=== PATIENT | female | born 1950 | race Caucasian/White ===

== ENCOUNTER 2017-03-09 10:41 | Inpatient (IN) | payer OTHER, MEDICARE ==
[~2017-03-09] VITALS: Ht 170.2 cm; Wt 85.8 kg
[~2017-03-09 10:41] MED LIST: AMLO10TA2 PO; ESTETAB3 PO; FISHCAP4 PO; HYDR25TA5 PO; SIMV20TA PO; VITA200C3 PO
--- NOTE | 2017-03-09 11:44 | PD.HP.UP ---
H&P Update Note The Pre-Admit History and Physical Examination regarding the above named patient was reviewed (including, but not limited to, vital signs, heart, lungs, co-morbid conditions), and upon re-examination it is noted that: the patient's condition has not significantly changed since the last examination. Satya Lopez MD Mar 09, 2017 11:44
[2017-03-09] MEDS ORDERED: ALVIMOPAN 12 MG CAPSULE ONE (12:27)
[2017-03-09] MEDS ORDERED: ceFAZolin INJ 1,000 MG VIAL ONE (12:28)
[2017-03-09] MEDS ORDERED: SODIUM CHLORIDE 0.9% INJ 100 ML ONE (12:29)
[2017-03-09] MEDS ORDERED: metroNIDAZOLE 500 MG INJ 100 ML IV ONE (12:29)
[2017-03-09] MEDS ORDERED: METOPROLOL TARTRATE 25 MG TAB PO PRN (12:30)
[2017-03-09] MEDS ORDERED: SODIUM CHLORID 0.9% 500 ML IV PRN (12:30)
[2017-03-09] MEDS ORDERED: LACTATED RINGER'S 1000 ML IV PRN (12:30)
[2017-03-09] MEDS ORDERED: CHLORHEXIDINE GLUCONATE 2 % 1 PACK (2 CLOTHS) TOPICAL PRN (12:30)
[2017-03-09] MEDS ORDERED: POVIDONE IODINE 5% (ANTISEPSIS KIT) 4 APPLICATIONS EACH NARE PRN (12:30)
[2017-03-09] MEDS: ALVIMOPAN 12 MG CAPSULE - On Call PO SCH (12:35)
--- NOTE | 2017-03-09 12:37 | RADRPT ---
EXAM DATE/TIME: 03/09/2017 12:13 [facility] COMPARISON: No previous studies available for comparison. INDICATIONS : Pre op colon surgery. Evaluate for pneumothorax, pneumonia, or communicable diseases. MEDICAL HISTORY : None. SURGICAL HISTORY : None. ENCOUNTER: Initial ACUITY: 1 day PAIN SCORE: 0/10 LOCATION: Bilateral chest FINDINGS: Minimal left basilar streakiness is noted consistent with possible atelectasis. Right lung is clear. The heart is normal. No pulmonary edema is noted. CONCLUSION: Minimal left basilar streakiness consistent with possible atelectasis. Jose Antonio Herrmann MD on March 09, 2017 at 12:34 Board Certified Radiologist. This report was verified electronically.
[2017-03-09] MEDS ORDERED: ceFAZolin 1,000 MG/NS 100 ML IV SCH ×2 (12:45)
[2017-03-09] MEDS ORDERED: METRONIDAZOLE 500 MG/100 ML ISONTONIC SOLN IV SCH (12:45)
[2017-03-09] MEDS ORDERED: DEXT 5%-NACL 0.9% 1000 ML INJ 1,000 ML IV SCH (13:00)
[2017-03-09] MEDS ORDERED: SUGAMMADEX SODIUM 200 MG/2 ML VIAL IV PUSH ONE ×2 (13:01)
[2017-03-09] MEDS ORDERED: ACETAMINOPHEN 1000 MG/100 ML 100 ML IV ONE (13:01)
[2017-03-09] MEDS ORDERED: BUPIVACAINE HCL PF 0.5% 30 ML VIAL ONE ×2 (13:51→13:52)
[2017-03-09] MEDS ORDERED: Post-op Orders (for Pharmacy) XX ONE (14:48)
[2017-03-09] MEDS ORDERED: *morphine SULFATE 8 MG/ML PERIprocedure ONLY ONE ×3 (14:54→15:21)
[2017-03-09] MEDS ORDERED: ACETAMINOPHEN 325 MG TAB PO PRN (15:00)
[2017-03-09] MEDS ORDERED: MORPHINE SULFATE 30 MG/30 ML PCA IV SCH (15:00)
[2017-03-09] MEDS ORDERED: ONDANSETRON HCL 4 MG/2 ML VIAL IV PUSH PRN (15:00)
[2017-03-09] MEDS ORDERED: BUPIVACAINE HCL PF 0.5% 30 ML VIAL NB SCH (15:00)
[2017-03-09] MEDS ORDERED: BENZOCAINE 6 MG/MENTHOL 10 MG LOZENGE BUCCAL PRN (15:00)
[2017-03-09] MEDS ORDERED: POTASSIUM CHLOR 20 MEQ PREMIX 100 ML IV PRN (15:00)
[2017-03-09] MEDS ORDERED: KETOROLAC TROMETHAMINE 30 MG/ML (IVP) VIAL IVP PRN (15:00)
[2017-03-09] MEDS ORDERED: NALOXONE HCL 0.4 MG/ML AMP IV PUSH PRN (15:00)
[2017-03-09] MEDS ORDERED: POTASSIUM CHLOR 40 MEQ PREMIX 100 ML IV PRN (15:00)
[2017-03-09] MEDS ORDERED: ACETAMINOPHEN/HYDROcodone 325 MG/5 MG TAB PO PRN (15:00)
[2017-03-09] MEDS ORDERED: ENALAPRILAT 1.25 MG/ML VIAL IV PUSH PRN (15:00)
[2017-03-09] MEDS ORDERED: ENALAPRILAT 2.5 MG/2 ML VIAL IV PUSH PRN (15:00)
[2017-03-09] MEDS ORDERED: MORPHINE SULFATE 30 MG/30 ML PCA ONE (15:25)
[2017-03-09] MEDS ORDERED: DO NOT ADM ANY ANTICOAGULANT DRUGS PRN (15:30)
[2017-03-09] MEDS: D5-NS + KCL 20 MEQ INJ 1,000 ML IV SCH ×2 (15:30→21:04)
[2017-03-09] MEDS ORDERED: *RESP: ALBUTEROL 2.5 MG/3 ML NEB (PRN) PERIprocedural Use ONLY NEB ONE (16:41)
[2017-03-09] MEDS: metroNIDAZOLE 500 MG INJ 100 ML IV SCH (21:03)
[2017-03-09] MEDS: METOCLOPRAMIDE HCL 10 MG/2 ML VIAL IVS SCH (21:04)
[2017-03-09] MEDS: PCA - TOTAL MG MORPHINE DELIVERED PER SHIFT SCH (21:14)
[2017-03-09 22:49] VITALS: BP 110/66; PULSE 88; RESP 18; TEMP 98.2; O2SAT 93
[2017-03-09 23:00] VITALS: PULSE 88
[2017-03-10] VITALS (15 sets, daily range): BP systolic 81–129; BP diastolic 59–76; PULSE 84–106; RESP 16–24; TEMP 98–99.3; O2SAT 92–93
[2017-03-10] MEDS: D5-NS + KCL 20 MEQ INJ 1,000 ML IV SCH ×3 (03:45→23:44)
[2017-03-10 04:15] LABS: AUTOMATED NEUTROPHIL # 16.7 TH/MM3 (1.8-7.7); BASOPHIL % 0.1 % (0.0-2.0); HEMATOCRIT 34.5 % (35.0-46.0); HEMO FLAGS DIFF FINAL; LYMPH % 4.4 % (9.0-44.0); LYMPHOCYTE # 0.8 TH/MM3 (1.0-4.8); MEAN CELL VOLUME 91.1 FL (80.0-100.0); MEAN CORPUSCULAR HEMOGLOBIN 30.1 PG (27.0-34.0); NEUT % 91.5 % (16.0-70.0); PLATELET COUNT 282 TH/MM3 (150-450); RED BLOOD COUNT 3.79 MIL/MM3 (4.00-5.30); RED CELL DISTRIBUTION WIDTH 13.9 % (11.6-17.2); WHITE BLOOD COUNT 18.3 TH/MM3 (4.0-11.0)
[2017-03-10] MEDS: metroNIDAZOLE 500 MG INJ 100 ML IV SCH ×2 (04:37→14:18)
[2017-03-10 04:43] LABS: BICARBONATE 22.5 MEQ/L (21.0-32.0); POTASSIUM 4.1 MEQ/L (3.5-5.1)
[2017-03-10] MEDS: PCA - TOTAL MG MORPHINE DELIVERED PER SHIFT SCH ×3 (06:00→20:40)
[2017-03-10] MEDS: PANTOPRAZOLE SOD 40 MG DELAYED RELEASE TAB PO SCH (09:00)
[2017-03-10] MEDS: PRAVASTATIN SOD 40 MG TAB PO SCH (09:46)
[2017-03-10] MEDS: ALVIMOPAN 12 MG CAPSULE - Post-op dosing PO SCH ×2 (09:46→20:39)
[2017-03-10] MEDS: METOCLOPRAMIDE HCL 10 MG/2 ML VIAL IVS SCH ×2 (09:47→20:40)
[2017-03-10] MEDS: PANTOPRAZOLE SODIUM 40 MG VIAL IVP SCH (09:47)
[2017-03-10] MEDS: RESP: ALBUTEROL 2.5 MG/IPRATROPIUM 0.5 MG NEB (SCH) NEB ×3 (10:04→19:59)
[2017-03-10] MEDS: HEPARIN SODIUM - SQ 10,000 UNITS/ML VIAL SQ SCH (14:18)
--- NOTE | 2017-03-10 15:56 | EKG ---
Date Performed: 03/09/2017 Time Performed: 12:21:16 PTAGE: 67 years EKG: Sinus rhythm WITH FIRST DEGREE AV BLOCK BORDERLINE LEFT AXIS DEVIATION LOW QRS VOLTAGE IN PRECORDIAL LEADS PATTER N CONSISTENT WITH PULMONARY DISEASE POSSIBLE RIGHT VENTRICULAR CONDUCTION DELAY ABNORMAL ECG NO PREVIOUS TRACING Possible right ventricular hypertrophy. DOCTOR: Eulalia Hernández Interpretating Date/Time 03/10/2017 15:55:18
--- NOTE | 2017-03-10 20:52 | HHI.PR ---
Subjective Remarks C/R surg POD#1 afebrile, VSS UO good Objective - Vital Signs Date Time Temp Pulse Resp B/P (MAP) Pulse Ox O2 Delivery O2 Flow Rate FiO2 03/10/17 20:40 18 03/10/17 20:02 92 Simple Mask 8.00 03/10/17 19:00 99.3 103 129/73 (91) Result Diagram: 03/10/17 0335 03/10/17 033 Objective Remarks PE alert Abd - soft, wound dry, min tympany A/P Assessment and Plan Imp: stable post-op OOB decr IVF tx to floor Satya Lopez MD Mar 10, 2017 20:52
[2017-03-10] MEDS ORDERED: ALVIMOPAN 12 MG CAPSULE PO SCH (21:00)
[2017-03-11] VITALS (15 sets, daily range): BP systolic 114–143; BP diastolic 55–77; PULSE 93–114; RESP 19–33; TEMP 98–100.2; O2SAT 80–94
[2017-03-11] MEDS: HEPARIN SODIUM - SQ 10,000 UNITS/ML VIAL SQ SCH ×2 (01:56→14:21)
[2017-03-11] MEDS: RESP: ALBUTEROL 2.5 MG/IPRATROPIUM 0.5 MG NEB (SCH) NEB ×4 (02:42→20:14)
[2017-03-11] MEDS: D5-NS + KCL 20 MEQ INJ 1,000 ML IV SCH (04:04)
[2017-03-11] MEDS: PCA - TOTAL MG MORPHINE DELIVERED PER SHIFT SCH ×3 (05:54→21:02)
[2017-03-11 08:21] LABS: BASOPHIL % 0.2 % (0.0-2.0); HEMATOCRIT 32.3 % (35.0-46.0); HEMO FLAGS DIFF FINAL; LYMPH % 6.5 % (9.0-44.0); LYMPHOCYTE # 1.5 TH/MM3 (1.0-4.8); MEAN CELL VOLUME 91.4 FL (80.0-100.0); MEAN CORPUSCULAR HEMOGLOBIN 30.8 PG (27.0-34.0); MEAN CORPUSCULAR HGB CONC 33.7 % (32.0-36.0); MONO % 4.8 % (0.0-8.0); NEUT % 88.5 % (16.0-70.0); PLATELET COUNT 250 TH/MM3 (150-450); RED BLOOD COUNT 3.53 MIL/MM3 (4.00-5.30); RED CELL DISTRIBUTION WIDTH 13.8 % (11.6-17.2); WHITE BLOOD COUNT 22.6 TH/MM3 (4.0-11.0)
[2017-03-11] MEDS: PANTOPRAZOLE SODIUM 40 MG VIAL IVP SCH (08:30)
[2017-03-11] MEDS: PRAVASTATIN SOD 40 MG TAB PO SCH (08:31)
[2017-03-11] MEDS: METOCLOPRAMIDE HCL 10 MG/2 ML VIAL IVS SCH ×2 (08:31→21:02)
[2017-03-11] MEDS: ALVIMOPAN 12 MG CAPSULE - Post-op dosing PO SCH ×2 (08:31→21:02)
[2017-03-11] MEDS: PANTOPRAZOLE SOD 40 MG DELAYED RELEASE TAB PO SCH (08:31)
[2017-03-11 08:48] LABS: BICARBONATE 23.2 MEQ/L (21.0-32.0); POTASSIUM 5.1 MEQ/L (3.5-5.1)
[2017-03-11] MEDS: FUROSEMIDE 20 MG/2 ML VIAL IV PUSH SCH ×2 (08:52→21:01)
[2017-03-11 09:19] LABS: BLOOD GAS BASE EXCESS -2.6 mmol/L (-2-2); BLOOD GAS CARBOXYHEMOGLOBIN 1.6 % (0-4); BLOOD GAS HCO3 21 mmol/L (22-26); BLOOD GAS METHEMOGLOBIN 0.9 % (0-2); BLOOD GAS O2 HGB SATURATION 89 % (90-100); BLOOD GAS OXYGEN CONTENT 14.1 Vol % (12.0-20.0); BLOOD GAS PCO2 33 mmHg (38-42); BLOOD GAS PO2 58 mmHg (61-120); BLOOD GAS TOTAL HGB 11.2 G/DL (12.0-16.0); TEMP CORR TO 98.6
[2017-03-11 09:20] LABS: CRITICAL VALUE YES; FIO2 100 %; LITER FLOW 15 L/M; OXYGEN DEVICE NRBR
[2017-03-11 09:21] LABS: DRAW SITE LT RADIAL; NUMBER OF ARTERIAL PUNCTURES 1; STAT YES; ULNAR PULSE PRESENT
[2017-03-11] MEDS ORDERED: FUROSEMIDE 40 MG/4 ML VIAL IV PUSH ONE ×2 (09:30→18:00)
--- NOTE | 2017-03-11 10:38 | RADRPT ---
EXAM DATE/TIME: 03/11/2017 09:49 [facility] COMPARISON: CHEST SINGLE AP, March 09, 2017, 12:13. INDICATIONS : Short of breath. Respiratory distress. MEDICAL HISTORY : None. SURGICAL HISTORY : Colon resection. ENCOUNTER: Subsequent ACUITY: 2 days PAIN SCORE: 0/10 LOCATION: Bilateral chest FINDINGS: Compared to the prior exam there has been a significant interval change with the development of diffu se bilateral interstitial infiltrates and hypoaeration of both lung gracia. The heart size is stable. No definite pleural effusions. The bony structures are stable. There is no evidence of pneumothorax. CONCLUSION: Interval development of diffuse bilateral interstitial pulmonary infiltrates and hypo-aeration of bot h lung gracia. Norman Rooney MD on March 11, 2017 at 10:35 Board Certified Radiologist. This report was verified electronically.
[2017-03-11] MEDS ORDERED: CHLORHEXIDINE GLUCONATE 2 % 1 PACK (2 CLOTHS)(extra cloths) TOPICAL PRN (11:00)
[2017-03-11 11:07] LABS: BLOOD, URINE NEG (NEG); GLUCOSE,URINE NEG (NEG); KETONE, URINE NEG (NEG); NITRITE,URINE NEG (NEG); PH, URINE 6.5 (5.0-8.5)
[2017-03-11 11:09] LABS: URINE COLOR STRAW (YELLW/STRAW)
[2017-03-11 11:10] LABS: COMMENT (UR) CATH-CULT NOT IND; CULTURE IF INDICATED CATH CULTURE NOT IND
[2017-03-11] MEDS ORDERED: GLUCAGON 1 MG/ML VIAL OTHER PRN (12:00)
[2017-03-11] MEDS ORDERED: DEXTROSE 50% IN WATER 50 ML VIAL(D50) IV PUSH PRN (12:00)
[2017-03-11 12:13] LABS: AUTOMATED NEUTROPHIL # 20.4 TH/MM3 (1.8-7.7); BASOPHIL % 0.2 % (0.0-2.0); HEMATOCRIT 35.4 % (35.0-46.0); HEMO FLAGS DIFF FINAL; LYMPH % 6.1 % (9.0-44.0); LYMPHOCYTE # 1.4 TH/MM3 (1.0-4.8); MEAN CELL VOLUME 90.7 FL (80.0-100.0); MEAN CORPUSCULAR HEMOGLOBIN 30.1 PG (27.0-34.0); MEAN CORPUSCULAR HGB CONC 33.1 % (32.0-36.0); MONO % 4.7 % (0.0-8.0); PLATELET COUNT 265 TH/MM3 (150-450); WHITE BLOOD COUNT 22.9 TH/MM3 (4.0-11.0)
[2017-03-11 12:22] LABS: PROTHROMBIN TIME - PATIENT 10.4 SEC (9.8-11.6)
[2017-03-11 12:35] LABS: ALKALINE PHOSPHATASE 66 U/L (45-117); ALT (GPT) 18 U/L (10-53); ANION GAP 8 MEQ/L (5-15); AST (GOT) 23 U/L (15-37); BICARBONATE 25.4 MEQ/L (21.0-32.0); BLOOD UREA NITROGEN 8 MG/DL (7-18); CHLORIDE 108 MEQ/L (98-107); GLOMERULAR FILTRATION RATE 73 ML/MIN (>89); MAGNESIUM 1.9 MG/DL (1.5-2.5); POTASSIUM 3.5 MEQ/L (3.5-5.1); SODIUM (NA) 141 MEQ/L (136-145); TOTAL BILIRUBIN ADULT 0.7 MG/DL (0.2-1.0)
[2017-03-11] MEDS ORDERED: MAGNESIUM OXIDE 400 MG TAB PO PRN (13:30)
[2017-03-11] MEDS ORDERED: POTASSIUM CHLOR 40 MEQ PREMIX 100 ML IV PRN ×2 (13:30)
[2017-03-11] MEDS ORDERED: MAGNESIUM SULFATE INJ 4 GM in SODIUM CHLORIDE 0.9% INJ 92 ML IV PRN (13:30)
[2017-03-11] MEDS ORDERED: POTASSIUM PHOSPHATE MONOBASIC 500 MG TAB PO/TUBE PRN (13:30)
[2017-03-11] MEDS ORDERED: MAGNESIUM SULFATE INJ 2 GM in SODIUM CHLORIDE 0.9% INJ 96 ML IV PRN (13:30)
[2017-03-11] MEDS ORDERED: POTASSIUM CHLOR 20 MEQ PREMIX 100 ML IV PRN ×2 (13:30)
[2017-03-11] MEDS ORDERED: POTASSIUM PHOSPHATE MONOBASIC 500 MG TAB PO PRN (13:30)
[2017-03-11] MEDS ORDERED: SODIUM PHOSPHATE INJ 30 MMOL in SODIUM CHLOR 0.9% 250 ML INJ 240 ML IV PRN (13:30)
--- NOTE | 2017-03-11 13:54 | MB ---
cc: JOSE CONLEY M.D. DATE OF CONSULTATION 03/11/2017 DATE OF 1950 HISTORY OF PRESENT ILLNESS The patient is a 67-year-old female with past medical history of hypertension and hyperlipidemia who underwent exploratory laparotomy, colectomy and appendectomy for a colon mass by Dr. Lopez yesterday. Post-op the patient was transferred to a regular floor. A H[facility]CAT was called earlier today for respiratory distress. The patient was noted to be tachycardic, tachypneic, and had a temperature of 100.1 at 4:00 a.m. Lasix 20 mg IV push was given and she was subsequently transferred to [facility] [place]. A chest x-ray this morning showed development of diffuse bilateral interstitial pulmonary infiltrates and hypoaeration of both lung gracia. She had an ABG done at 9:08 which showed pH of 7.43, CO2 33, PAO2 58, bicarb 21, saturation of 89% on a nonrebreather mask. The patient was given additional Lasix 40 mg IV push in the ICU. She states she feels somewhat better and remains on the nonrebreather with saturation of 93%. She denies any chest pain, cough or edema of lower extremities. PAST MEDICAL HISTORY 1. Hypertension. 2. Hyperlipidemia. 3. Colon mass. PAST SURGICAL HISTORY 1. Status post exploratory laparotomy, colectomy and appendectomy on March 10, 2017. 2. Previous back surgery. 3. Previous breast implants. ALLERGIES BUPROPION - SIDE EFFECTS INCLUDE HIVES. SOCIAL HISTORY The patient is an active smoker where she smokes a pack of cigarettes per day and has a 99-[id number] history of smoking. She is a social drinker. MEDICATIONS Medications at home include: 1. Amlodipine 10 mg daily. 2. Simvastatin 20 mg daily. 3. Vitamin-C. 4. Vitamin-E. FAMILY HISTORY Family history reviewed and not contributing to current present illness. REVIEW OF SYSTEMS As per HPI. The rest of the review of systems unremarkable. PHYSICAL EXAMINATION GENERAL: A 67-year-old female lying in bed in mild respiratory distress on a nonrebreather mask. VITAL SIGNS: T-max 100.1, pulse 105, blood pressure 119/55, with MAP 79, saturation 93%. HEENT: Atraumatic, normocephalic. Pupils equal and reactive to light and accommodation. Extraocular muscles intact. Conjunctiva pink. Non-icteric sclera. Oral mucosa within normal. NECK: Supple. No JVD, adenopathy or thyromegaly. Trachea in the midline. CARDIOVASCULAR: Tachycardic. Normal S1, S2. No murmurs, rubs or gallops noted. PULMONARY: Bilateral equal entry with coarse breath sounds and crackles. ABDOMEN: Soft. Positive bowel sounds. EXTREMITIES: No cyanosis, clubbing or edema. NEUROLOGIC: No focal sensory deficit. LABORATORY DATA Sodium 139, potassium 5.1, chloride 109, CO2 23, BUN 8, creatinine 0.69, glucose 153, WBC 22.6, hemoglobin 10.9, hematocrit 32, platelet count 250. Urinalysis negative for nitrite and leukocyte esterase. IMAGING DATA Chest x-ray showed diffuse bilateral interstitial pulmonary infiltrates and hypoaeration of both lung gracia. IMPRESSION 1. Acute hypoxemic respiratory failure. 2. Diffuse bilateral pulmonary infiltrates, likely secondary to fluid overload. 3. Leukocytosis. 4. Status post exploratory laparotomy with colectomy and appendectomy. 5. Hypertension. 6. Hyperlipidemia. 7. Anemia. PLAN/RECOMMENDATIONS 1. Monitor neuro status closely. Continue with CHARGING [employer]ATOR for pain control. 2. Wean down oxygen as tolerated and maintain sats above 92%. 3. Bronchodilators in the form of DuoNeb q.4h. plus q.2h. p.r.n. for shortness of breath. 4. Chest x-ray showed diffuse bilateral pulmonary infiltrates, likely secondary to fluid overload. Will discontinue IV fluids. In addition, Lasix 40 mg IV x1 was given. 5. Monitor heart rate and blood pressure closely and maintain MAP greater than 65 mmHg. Continue with Norvasc 10 mg daily. In addition the patient is on Pravachol 40 mg daily. Follow-up on lactic acid. 6. Monitor renal function, I's and O's and electrolyte replacement per protocol. IV fluids were discontinued and Lasix 40 mg given as stated above. 7. Keep n.p.o. for now until respiratory status improves. 8. Continue with Protonix 40 mg daily for GI prophylaxis. 9. Place on broad-spectrum antibiotic in the form of Zosyn and monitor for signs of infection which includes fever and WBC. Will obtain blood cultures x2 sets. A urinalysis from today was negative for UTI. 10.Sliding scale insulin with Accu-Cheks if needed for glycemic control. 11.Monitor CBC. 12.GI prophylaxis with Protonix 40 mg daily, and DVT prophylaxis with SCDs. In addition the patient is on heparin subcu 5000 units q.12h. 13.Further recommendations will be based on the hospital course. MD ELVIRA Almaraz/JAYJAY /11:45 AM /1:31 PM MTDTricia
[2017-03-11] MEDS: INSULIN NovoLIN REGULAR SUPPLEMENTAL SCALE SQ SCH ×3 (14:00→23:36)
[2017-03-11 14:06] LABS: LACTIC ACID GHOST NOT REPORTABLE
[2017-03-11] MEDS: PIPERACIL-TAZO 4.5 GM PREMIX 100 ML IV SCH ×2 (14:21→21:01)
[2017-03-11] MEDS: POTASSIUM PHOSPHATE INJ 30 MMOL in SODIUM CHLOR 0.9% 250 ML INJ 250 ML IV PRN (15:13)
[2017-03-11 16:32] LABS: BLOOD GAS BASE EXCESS 1.1 mmol/L (-2-2); BLOOD GAS CARBOXYHEMOGLOBIN 1.2 % (0-4); BLOOD GAS HCO3 25 mmol/L (22-26); BLOOD GAS O2 HGB SATURATION 91 % (90-100); BLOOD GAS OXYGEN CONTENT 13.9 Vol % (12.0-20.0); BLOOD GAS PCO2 36 mmHg (38-42); BLOOD GAS PO2 64 mmHg (61-120); BLOOD GAS TOTAL HGB 10.8 G/DL (12.0-16.0); CRITICAL VALUE NO; TEMP CORR TO 98.6
[2017-03-11 16:33] LABS: DRAW SITE RT RADIAL; FIO2 100 %; LITER FLOW 15 L/M; NUMBER OF ARTERIAL PUNCTURES 1; OXYGEN DEVICE NRB; STAT YES; ULNAR PULSE PRESENT
[2017-03-11] MEDS: metroNIDAZOLE 500 MG INJ 100 ML IV SCH (17:58)
--- NOTE | 2017-03-11 18:02 | HHI.PR ---
Subjective Remarks C/R surg POD#2 afebrile, VSS - tachy, O2 sat low UO good c/o SOB tx to URI Objective - Vital Signs Date Time Temp Pulse Resp B/P (MAP) Pulse Ox O2 Delivery O2 Flow Rate FiO2 03/11/17 14:00 103 22 124/69 (87) 91 03/11/17 12:00 Non-Rebreather 15.00 03/11/17 12:00 100.2 Result Diagram: 03/11/17 1159 03/11/17 1159 Objective Remarks PE alert Chest - on Rebreather Abd - soft, wound dry, min tympany, wound clean, ON-Q dc'd No BM A/P Assessment and Plan Imp: CXR - pulm infiltrates/CHF OOB decr IVF resp Rx, IV ab'Satya Garcia MD Mar 11, 2017 18:01
[2017-03-12] VITALS (10 sets, daily range): BP systolic 127–137; BP diastolic 64–73; PULSE 91–105; RESP 18–37; TEMP 97.7–99; O2SAT 93–97
[2017-03-12] MEDS: PIPERACIL-TAZO 4.5 GM PREMIX 100 ML IV SCH ×4 (01:47→20:59)
[2017-03-12] MEDS: POTASSIUM PHOSPHATE INJ 30 MMOL in SODIUM CHLOR 0.9% 250 ML INJ 250 ML IV PRN (01:47)
[2017-03-12] MEDS: HEPARIN SODIUM - SQ 10,000 UNITS/ML VIAL SQ SCH ×2 (01:48→15:51)
[2017-03-12] MEDS: metroNIDAZOLE 500 MG INJ 100 ML IV SCH ×3 (01:48→18:10)
[2017-03-12] MEDS: RESP: ALBUTEROL 2.5 MG/IPRATROPIUM 0.5 MG NEB (SCH) NEB ×4 (02:41→20:17)
[2017-03-12] MEDS: CHLORHEXIDINE GLUCONATE 2 % 1 PACK (2 CLOTHS)(taper/protocol) TOPICAL SCH (04:00)
--- NOTE | 2017-03-12 04:22 | RADRPT ---
EXAM DATE/TIME: 03/12/2017 03:03 [facility] COMPARISON: CHEST SINGLE AP, March 11, 2017, 9:49. INDICATIONS : Evaluate for pneumonia MEDICAL HISTORY : None. SURGICAL HISTORY : Colon Resection ENCOUNTER: Subsequent ACUITY: 3 days PAIN SCORE: 7/10 LOCATION: Bilateral chest FINDINGS: Single AP view of the chest. Lung volumes remain low. Persistent bilateral pulmonary opacity left gre ater than right. Cardiomediastinal silhouette unchanged. Possible small left pleural effusion unchang ed. No evidence of pneumothorax. CONCLUSION: No significant interval change with persistent left greater than right pulmonary opacity. Delfin Blount MD on March 12, 2017 at 4:20 Board Certified Radiologist. This report was verified electronically.
[2017-03-12 04:36] LABS: AUTOMATED NEUTROPHIL # 16.7 TH/MM3 (1.8-7.7); BASOPHIL % 0.1 % (0.0-2.0); EOSINOPHIL % 0.2 % (0.0-4.0); HEMATOCRIT 32.2 % (35.0-46.0); HEMO FLAGS DIFF FINAL; LYMPH % 7.8 % (9.0-44.0); LYMPHOCYTE # 1.5 TH/MM3 (1.0-4.8); MEAN CELL VOLUME 91.1 FL (80.0-100.0); NEUT % 86.9 % (16.0-70.0); PLATELET COUNT 243 TH/MM3 (150-450); RED BLOOD COUNT 3.53 MIL/MM3 (4.00-5.30); RED CELL DISTRIBUTION WIDTH 13.9 % (11.6-17.2); WHITE BLOOD COUNT 19.2 TH/MM3 (4.0-11.0)
[2017-03-12 04:47] LABS: BICARBONATE 25.2 MEQ/L (21.0-32.0); POTASSIUM 3.5 MEQ/L (3.5-5.1)
[2017-03-12] MEDS: PCA - TOTAL MG MORPHINE DELIVERED PER SHIFT SCH ×2 (06:00→22:00)
[2017-03-12] MEDS: INSULIN NovoLIN REGULAR SUPPLEMENTAL SCALE SQ SCH ×3 (06:00→18:00)
[2017-03-12] MEDS: ALVIMOPAN 12 MG CAPSULE - Post-op dosing PO SCH ×3 (09:00→21:00)
--- NOTE | 2017-03-12 09:29 | EKG ---
Date Performed: 03/11/2017 Time Performed: 09:36:35 PTAGE: 67 years EKG: SINUS TACHYCARDIA WITH FREQUENT VENTRICULAR PREMATURE COMPLEXES INCOMPLETE RIGHT BUNDLE BRA NCH BLOCK POSSIBLE INFERIOR MYOCARDIAL INFARCTION , PROBABLY OLD ABNORMAL RHYTHM ECG PREVIOUS TRACING : 03/09/2017 12.21 DOCTOR: Adenike Langford Interpretating Date/Time 03/12/2017 09:28:38
[2017-03-12] MEDS: PANTOPRAZOLE SODIUM 40 MG VIAL IVP SCH (09:35)
[2017-03-12] MEDS: METOCLOPRAMIDE HCL 10 MG/2 ML VIAL IVS SCH ×2 (09:35→21:00)
[2017-03-12] MEDS: FUROSEMIDE 20 MG/2 ML VIAL IV PUSH SCH ×2 (09:36→21:00)
[2017-03-12] MEDS: PRAVASTATIN SOD 40 MG TAB PO SCH (09:37)
--- NOTE | 2017-03-12 09:38 | HHI.CCPN ---
Subjective Remarks/Hospital Course Subjective: 03/12: still hypoxic despite 3L diuresis yesterday. still requires NRB and if weaned at all, spo2 drops to the 70s. no ROBF yet. patient states she thinks her abdominal pain is improved, but still complains of SOB. Objective Vital Signs Date Time Temp Pulse Resp B/P (MAP) Pulse Ox O2 Delivery O2 Flow Rate FiO2 03/12/17 07:52 94 Non-Rebreather 15.00 03/12/17 06:00 24 03/12/17 04:00 98.7 92 137/66 (89) 03/11/17 20:16 100 Intake and Output 03/12/17 03/12/17 03/13/17 08:00 16:00 00:00 Intake Total 250 ml Output Total 2750 ml Balance -2500 ml Result Diagram: 03/12/17 0326 03/12/17 0326 Other Results Laboratory Tests Test 03/11/17 16:16 Blood Gas Puncture Site RT RADIAL Blood Gas Patient Temperature 98.6 Blood Gas HCO3 25 mmol/L (22-26) Blood Gas Base Excess 1.1 mmol/L (-2-2) Blood Gas Oxygen Saturation 91 % (90-100) Arterial Blood pH 7.45 (7.380-7.420) Arterial Blood Partial Pressure CO2 36 mmHg (38-42) Arterial Blood Partial Pressure O2 64 mmHg (61-120) Arterial Blood Oxygen Content 13.9 Vol % (12.0-20.0) Arterial Blood Carboxyhemoglobin 1.2 % (0-4) Arterial Blood Methemoglobin 1.0 % (0-2) Blood Gas Hemoglobin 10.8 G/DL (12.0-16.0) Oxygen Delivery Device NRB Blood Gas Liter Flow 15 L/M Blood Gas Inspired Oxygen 100 % Objective Remarks gen: middle-aged female, lying in bed, NRB in place. heent: nc. at. perrl. mmm. neck: trachea midline. no jvd. NRB in place. chest: tachypneic. spo2 92% on NRB. not using accessory muscles. cv: slightly tachycardic rate in the low 100s, regular rhythm. sinus by tele. abd: soft, appropriately tender to palpation. nondistended. abdominal binder in place. no guarding. incisions are c/d/i. extr: trace peripheral edema. distal pulses 2+. neuro: RASS 0. CAM -. GCS 15. follows commands. A/P Assessment and Plan Assessment: 67yF POD 3 s/p laparotomy, colectomy with ileoanal anastamosis, complicated by post-operative pulmonary insufficiency. Good diuresis yesterday, but still persistent infiltrates. This could be early ARDS, though afebrile and does not appear toxic. Unlikely to be anastamotic leak this early in clinical course. still most likely diagnosis is pulmonary edema and volume overload. continue forced diuresis. aggressive pulmonary toilet. PT. Post-operative pulmonary insufficiency Pulmonary edema Acute intravascular volume overload - increase lasix to 20mg iv q12h - high flow NC o2. - aggressive pulmonary toilet. Hypomagnesemia Hypokalemia - aggressive electrolyte replacement with active diuresis Leukocytosis - likely post-operative SIRS response - agree with continuing Flagyl and Zosyn until culture data results. at 48h, would consider de-escalation of abx therapy if no positive cultures. Sinus tachycardia - likely secondary to SIRS response post-op. continue to monitor. s/p laparotomy, colectomy 03/09 - await ROBF - diet advancement per surgeon - continue adequate pain control. Remain in ICU. Critical care will continue to follow along. Cl Matrinez MD Mar 12, 2017 09:38
[2017-03-12] MEDS: MAGNESIUM SULFATE 1 GM PREMIX 100 ML IV SCH ×2 (09:40→11:01)
--- NOTE | 2017-03-12 11:47 | HHI.PR ---
Subjective Remarks POD#3 s/p ascending colectomy Still SOB, reports less abdominal pain Objective Vital Signs Date Time Temp Pulse Resp B/P (MAP) Pulse Ox O2 Delivery O2 Flow Rate FiO2 03/12/17 10:01 93 High Flow Nasal Cannula 30.00 100 03/12/17 07:52 94 Non-Rebreather 15.00 03/12/17 06:00 24 03/12/17 04:00 96 Non-Rebreather 15.00 03/12/17 04:00 98.7 92 29 137/66 (89) 96 03/12/17 00:00 99.0 92 28 127/69 (88) 95 03/12/17 00:00 95 Non-Rebreather 15.00 03/11/17 21:02 24 03/11/17 20:16 93 NEB U MASK 15.00 100 03/11/17 20:00 99.5 97 33 124/73 (90) 92 03/11/17 20:00 92 Non-Rebreather 15.00 03/11/17 20:00 97 03/11/17 19:00 93 20 125/69 (87) 94 03/11/17 18:00 97 33 138/67 (90) 94 03/11/17 17:00 102 28 128/74 (92) 90 03/11/17 16:00 92 Non-Rebreather 15.00 03/11/17 16:00 98.6 106 26 129/68 (88) 92 03/11/17 15:00 104 30 121/58 (79) 92 03/11/17 14:00 103 22 124/69 (87) 91 03/11/17 14:00 22 03/11/17 13:00 104 26 114/70 (85) 94 03/11/17 12:00 91 Non-Rebreather 15.00 03/11/17 12:00 100.2 106 26 118/64 (82) 90 I/O 03/11/17 03/11/17 03/11/17 03/12/17 03/12/17 03/12/17 07:00 15:00 23:00 07:00 15:00 23:00 Intake Total 1060 ml 1456 ml 584 ml 250 ml Output Total 800 ml 2650 ml 800 ml 2750 ml Balance 260 ml -1194 ml -216 ml -2500 ml Intake Oral 60 ml 50 ml IV Total 1000 ml 1456 ml 584 ml 200 ml Output Urine Total 800 ml 2650 ml 800 ml 2750 ml # Bowel Movements 0 Result Diagram: 03/12/17 0326 03/12/17 0326 Objective Remarks Appears comfortable on O2 NC Abdomen soft, nondistended, tender Wound clean Assessment and Plan Assessment and Plan Clears today Appreciate Chip Drier's assistance. Suki Frost MD Mar 12, 2017 11:47
--- NOTE | 2017-03-12 17:34 | MB ---
cc: AMILCAR STAUFFER MD DATE OF CONSULTATION 03/12/[address] Hilton REASON FOR CONSULTATION Leukocytosis. Patient status post exploratory laparotomy. HISTORY OF PRESENT ILLNESS This is a 67-year-old white female who underwent ascending colectomy for a cecal mass. The patient had elevated white blood cell count on admission to the hospital on 03/10. Her white count was 18.3. The surgery was performed on 03/09. She also had appendectomy performed as well. Pathology on the specimen is not yet available. The patient had elevated temperature to 100.1 degrees yesterday morning. Her white blood cell count increased from 18.3 to 22.6. The workup to date has revealed negative blood culture. Urinalysis was unremarkable. Chest x-ray showed development of diffuse bilateral interstitial pulmonary infiltrates and hypoaeration of both lung gracia. Repeat chest x-ray today shows no significant interval change and persistent left greater than right pulmonary opacity. The patient states that she is coughing but not able to bring up sputum. She denies chest pain. She notes that it is difficult to breathe. She is on oxygen via nasal cannula. She is awake and alert. PAST MEDICAL HISTORY 1. Cataract surgery. 2. Breast implants. ALLERGIES BUPROPION MEDICATIONS 1. Piperacillin/tazobactam 2. Metronidazole 3. Lasix 4. Insulin 5. Entereg 6. DuoNebs 7. Protonix, 8. Norvasc, 9. Pravachol. 10. Reglan SOCIAL HISTORY The patient is . She is a smoker, one pack a day. No illicit drugs. FAMILY HISTORY Noncontributory. REVIEW OF SYSTEMS Significant for shortness of breath and cough. PHYSICAL EXAMINATION GENERAL: Well-developed female in no acute distress. She is awake, alert and oriented. VITAL SIGNS: Temperature 98.7, BP 132/70, heart rate 97, respirations 22. HEENT: Head is atraumatic. Extraocular movements grossly intact, pupils reactive to light without icterus. No conjunctival erythema. Oropharynx moist mucosa. No lesions. NECK: Supple without adenopathy. LUNGS: Coarse bilateral rhonchi. HEART: Regular S1, S2 without murmurs. ABDOMEN: Bowel sounds present, soft, nontender. RECTAL: Not performed. EXTREMITIES: No clubbing, cyanosis or edema. SKIN: No rash. NEUROLOGIC: Nonfocal. LABORATORY DATA WBC 19.2, platelets 243, 86% neutrophils. Hemoglobin 10.6, creatinine 0.64, BUN 11, sodium 141. IMPRESSION 1. Leukocytosis. 2. Abnormal chest x-ray, cough and low grade fever. 3. Status post ascending colectomy The patient very likely has pneumonia accounting for the leukocytosis. RECOMMENDATIONS 1. Continue Piperacillin tazobactam for pulmonary coverage. 2. Continue Metronidazole 3. Obtain sputum culture if she is able to produce a specimen. 4. Monitor chest x-ray, white blood cell count and clinical status. Thank you for this consultation. I will follow the patient's progress and her white blood cell count and will make further recommendations on followup if necessary. Amilcar Stauffer MD FD/ /4:04 PM /5:10 PM MTDTricia
--- NOTE | 2017-03-12 19:58 | MP ---
cc: ALF FERRARI M.D. DATE OF SURGERY: 03/09/2017. 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 POSTOPERATIVE DIAGNOSIS: Sessile tumor of the ascending colon. OPERATION: Exploratory laparotomy with ascending colectomy. SURGEON: Alf Ferrari MD. [employer]: Chris Brennan MD. DESCRIPTION OF THE PROCEDURE IN DETAIL: The patient was placed in the supine position. After adequate general anesthesia, her abdomen was prepped with Betadine solution and draped in the usual sterile fashion. With Dr. Brennan's assistance, the abdomen was opened through a supraumbilical transverse incision dividing the rectus muscle with electrocautery. Exploration revealed a palpable tumor within the ascending colon. There was no serosal puckering. The colon was quite redundant especially in the sigmoid colon as well as along the transverse and right colon. The liver was pretty normal to palpation. The gallbladder had no stones. The stomach and duodenum were normal. The uterus and the ovaries were appropriate for the patient's age. The great vessels were of normal caliber and fairly soft to palpation. First the right colon was mobilized medially by dividing along the white line of Toldt. The right ureter was identified and carefully preserved. Dissection then proceeded up taking down attachments to the hepatic flexure into the lesser sac and taking the gastrocolic omentum off the transverse colon. The bowel was then divided in the right transverse colon and the terminal ileum using the ANGIE stapling device for the transverse colon and Cherise clamps for the terminal ileum. The major vascular pedicles were then divided between Kellys obtaining hemostasis with Vicryl ties. Bowel continuity was then restored by firing the ANGIE stapler across the antimesenteric into the bowel and closing the enterotomy with a TA 60 stapler. The mesenteric defect was closed with a running Vicryl suture and a 3-0 Vicryl crotch suture was placed as well. The bowel was returned to the abdominal cavity. Hemostasis was achieved. The transverse incision was then closed anatomically in two layers using #1 PDS sutures to reapproximate the respective fascial layers. On-Q catheters were placed into the rectus sheath on the right side and brought up through a stab wound above the transverse incision. The subcutaneous tissue was irrigated copiously and the skin copiously and the skin closed with a running subcuticular Vicryl suture. The wound area was washed with normal saline and dried. Sterile dressing of Telfa and gauze applied. The patient tolerated the procedure quite well and was brought to the recovery room in stable condition. Sponge and needle counts were correct at the end of the procedure. MD TRISH Fagan/ALISE /6:14 PM /7:42 PM
[2017-03-13] VITALS (8 sets, daily range): BP systolic 109–134; BP diastolic 57–72; PULSE 84–97; RESP 20–34; TEMP 98.2–99.2; O2SAT 93–100
[2017-03-13] MEDS: HEPARIN SODIUM - SQ 10,000 UNITS/ML VIAL SQ SCH ×2 (02:33→15:43)
[2017-03-13] MEDS: PIPERACIL-TAZO 4.5 GM PREMIX 100 ML IV SCH ×4 (02:33→21:22)
[2017-03-13] MEDS: metroNIDAZOLE 500 MG INJ 100 ML IV SCH ×3 (02:34→17:57)
[2017-03-13] MEDS: RESP: ALBUTEROL 2.5 MG/IPRATROPIUM 0.5 MG NEB (SCH) NEB ×4 (03:13→19:57)
[2017-03-13] MEDS: CHLORHEXIDINE GLUCONATE 2 % 1 PACK (2 CLOTHS)(taper/protocol) TOPICAL SCH (04:00)
[2017-03-13] MEDS: INSULIN NovoLIN REGULAR SUPPLEMENTAL SCALE SQ SCH ×4 (06:00→17:56)
[2017-03-13] MEDS: PCA - TOTAL MG MORPHINE DELIVERED PER SHIFT SCH ×2 (06:00→13:43)
[2017-03-13] MEDS: FUROSEMIDE 20 MG/2 ML VIAL IV PUSH SCH (08:05)
[2017-03-13] MEDS: PANTOPRAZOLE SODIUM 40 MG VIAL IVP SCH (08:05)
[2017-03-13] MEDS: ALVIMOPAN 12 MG CAPSULE - Post-op dosing PO SCH ×2 (08:06→21:19)
[2017-03-13] MEDS: METOCLOPRAMIDE HCL 10 MG/2 ML VIAL IVS SCH ×2 (08:06→21:19)
[2017-03-13] MEDS: PRAVASTATIN SOD 40 MG TAB PO SCH (08:06)
--- NOTE | 2017-03-13 08:19 | HHI.PR ---
Subjective Remarks POD#4 s/p ascending colectomy Still SOB, states abdomen ok Objective Vital Signs Date Time Temp Pulse Resp B/P (MAP) Pulse Ox O2 Delivery O2 Flow Rate FiO2 03/13/17 07:44 99 High Flow Nasal Cannula 30.00 100 03/13/17 06:00 26 03/13/17 04:00 98.7 88 27 127/67 (87) 96 03/13/17 04:00 94 Nasal Cannula 30.00 100 03/13/17 00:00 93 Nasal Cannula 30.00 100 03/13/17 00:00 98.2 95 34 122/68 (86) 93 03/13/17 00:00 95 03/12/17 22:00 96 03/12/17 22:00 26 03/12/17 20:17 95 High Flow Nasal Cannula 30.00 100 03/12/17 20:00 98.7 101 35 127/67 (87) 95 03/12/17 20:00 95 Nasal Cannula 30.00 100 03/12/17 20:00 101 03/12/17 16:00 94 Nasal Cannula 30.00 100 Humidified 03/12/17 16:00 98.5 105 37 132/70 (90) 94 03/12/17 12:00 98.3 93 18 130/64 (86) 97 03/12/17 12:00 96 Non-Rebreather 15.00 03/12/17 10:01 93 High Flow Nasal Cannula 30.00 100 I/O 03/12/17 03/12/17 03/12/17 03/13/17 03/13/17 03/13/17 07:00 15:00 23:00 07:00 15:00 23:00 Intake Total 250 ml 650 ml 1305 ml 1000 ml 203 ml Output Total 2750 ml 625 ml 400 ml Balance -2500 ml 650 ml 680 ml 600 ml 203 ml Intake Oral 50 ml 1000 ml 1000 ml IV Total 200 ml 650 ml 305 ml 203 ml Output Urine Total 2750 ml 625 ml 400 ml Result Diagram: 03/12/17 0326 03/12/17 0326 Objective Remarks Appears comfortable on O2 NC Abdomen soft, mildly distended, tender Wound clean Assessment and Plan Assessment and Plan Would continue with clears until flatus or bm continue gentle diuresis Suki Frost MD Mar 13, 2017 08:19
[2017-03-13 14:28] LABS: HEMATOCRIT 30.7 % (35.0-46.0); MEAN CELL VOLUME 90.9 FL (80.0-100.0); MEAN CORPUSCULAR HEMOGLOBIN 30.8 PG (27.0-34.0); MEAN CORPUSCULAR HGB CONC 33.9 % (32.0-36.0); PLATELET COUNT 290 TH/MM3 (150-450); RED BLOOD COUNT 3.38 MIL/MM3 (4.00-5.30); RED CELL DISTRIBUTION WIDTH 13.7 % (11.6-17.2); REVIEW FLAG FINAL; WHITE BLOOD COUNT 13.8 TH/MM3 (4.0-11.0)
[2017-03-13 14:45] LABS: BICARBONATE 29.5 MEQ/L (21.0-32.0); POTASSIUM 3.3 MEQ/L (3.5-5.1)
--- NOTE | 2017-03-13 14:51 | HHI.CCPN ---
Subjective Remarks/Hospital Course Subjective: 03/12: still hypoxic despite 3L diuresis yesterday. still requires NRB and if weaned at all, spo2 drops to the 70s. no ROBF yet. patient states she thinks her abdominal pain is improved, but still complains of SOB. 03/13: hypoxemia persists, on high flow NC, 30LPM, 100% fio2. however, subjectively feels better. still no ROBF. Objective Vital Signs Date Time Temp Pulse Resp B/P (MAP) Pulse Ox O2 Delivery O2 Flow Rate FiO2 03/13/17 13:43 23 03/13/17 12:00 Nasal Cannula 30.00 100 03/13/17 12:00 98.9 84 110/67 (81) 100 Intake and Output 03/13/17 03/13/17 03/14/17 08:00 16:00 00:00 Intake Total 1203 ml 200 ml Output Total 400 ml Balance 803 ml 200 ml Result Diagram: 03/13/17 1358 03/13/17 1358 Objective Remarks gen: middle-aged female, lying in bed, high flow NC. heent: nc. at. perrl. mmm. neck: trachea midline. no jvd. NRB in place. chest: tachypneic. spo2 98% on high flow NC. not using accessory muscles. cv: slightly tachycardic rate in the low 100s, regular rhythm. sinus by tele. abd: soft, appropriately tender to palpation. nondistended. abdominal binder in place. no guarding. incisions are c/d/i. extr: trace peripheral edema. distal pulses 2+. neuro: RASS 0. CAM -. GCS 15. follows commands. A/P Assessment and Plan Assessment: 67yF POD 4 s/p laparotomy, right hemicolectomy, complicated by post- operative pulmonary insufficiency. pulmonary edema vs. pneumonia. continue supportive care. Post-operative pulmonary insufficiency Pulmonary edema Acute intravascular volume overload - increase lasix to 40mg iv q12h - high flow NC o2. - aggressive pulmonary toilet. Hypomagnesemia Hypokalemia - aggressive electrolyte replacement with active diuresis Leukocytosis - likely post-operative SIRS response - agree with continuing Flagyl and Zosyn ID involved. Sinus tachycardia - likely secondary to SIRS response post-op. continue to monitor. s/p laparotomy, colectomy 03/09 - await ROBF - diet advancement per surgeon - continue adequate pain control. Remain in ICU. Critical care will continue to follow along. Cl Martinez MD Mar 13, 2017 14:51
--- NOTE | 2017-03-13 15:32 | HHI.IDPN ---
Note Infectious Disease Note Patient says she feels a little beter. Still has SOB. On nasal O2. Afebrile. Gets pleuritic chest pain. Post ascending colectomy for cecal mass. Also had appendectomy PAST MEDICAL HISTORY 1. Cataract surgery. 2. Breast implants. ALLERGIES BUPROPION MEDICATIONS 1. Piperacillin/tazobactam 2. Metronidazole Current Medications Medications (Trade) Dose Ordered Sig/Gifty Route PRN Reason Start Time Stop Time Status Last Admin Dose Admin Alvimopan (Entereg) 12 mg BID PO 03/10/17 09:00 03/16/17 21:01 03/13/17 08:06 Bupivacaine HCl (Marcaine Pf 0.5% Inj) 360 ml UNSCH NB 03/09/17 15:00 Acetaminophen/ Hydrocodone Bitart ([place] 5-325 Mg) 1 tab Q4H PRN PO PAIN SCALE 1 TO 4 03/09/17 15:00 Acetaminophen/ Hydrocodone Bitart ([place] 5-325 Mg) 2 tab Q4H PRN PO PAIN SCALE 5 TO 10 03/09/17 15:00 Acetaminophen (Tylenol) 650 mg Q4H PRN PO Temperature > 101F 03/09/17 15:00 Pantoprazole Sodium (Protonix Inj) 40 mg DAILY IVP 03/10/17 09:00 03/13/17 08:05 Metoclopramide HCl (Reglan Inj) 10 mg Q12HR IVS 03/09/17 21:00 03/13/17 08:06 Ondansetron HCl (Zofran Inj) 4 mg Q6H PRN IV PUSH NAUSEA 03/09/17 15:00 Benzocaine/Menthol (Chloraseptic Alexandra) 1 lozenge UNSCH PRN BUCCAL SORE THROAT 03/09/17 15:00 Heparin Sodium (Porcine) (Heparin Inj) 5,000 units Q12H SQ 03/10/17 14:00 03/13/17 02:33 Naloxone HCl (Narcan Inj) 0.4 mg UNSCH PRN IV PUSH RESPIRATORY RATE LESS THAN 10 03/09/17 15:00 Morphine Sulfate (Morphine 1 Mg/ ml SERVICE DELIVERY ANALYST) 30 mg UNSCH IV 03/09/17 15:00 03/10/17 23:48 SERVICE DELIVERY ANALYST Dosage Infused (Pha) 1 Q8HR .XX 03/09/17 15:00 03/13/17 13:43 Amlodipine Besylate (Norvasc) 10 mg DAILY PO 03/10/17 09:00 03/13/17 08:06 Pravastatin Sodium (Pravachol) 40 mg DAILY PO 03/10/17 09:00 03/13/17 08:06 Miscellaneous Information Patient in critical care unit? Ass... [id number] .XX 03/11/17 11:00 Chlorhexidine Gluconate (Chlorhexidine 2% Cloth) 3 pack DAILY@04 TOPICAL 03/12/17 04:00 03/16/17 04:01 03/13/17 04:00 Chlorhexidine Gluconate (Chlorhexidine 2% Cloth) 3 pack UNSCH PRN TOPICAL HYGIENIC CARE 03/11/17 11:00 03/16/17 10:48 Piperacillin Sod/ Tazobactam Sod 100 ml @ 200 mls/hr Q6H IV 03/11/17 14:00 03/13/17 08:04 Dextrose (D50w (Vial) Inj) 50 ml UNSCH PRN IV PUSH HYPOGLYCEMIA-SEE COMMENTS 03/11/17 12:00 Glucagon (Glucagon Inj) 1 mg UNSCH PRN OTHER HYPOGLYCEMIA-SEE COMMENTS 03/11/17 12:00 Insulin Human Regular (NovoLIN R SUPPLEMENTAL SCALE) 1 Q6H SQ 03/11/17 12:00 Potassium Chloride 100 ml @ 50 mls/hr Q2H PRN IV For Potassium 2.8 - 3.2 mEq/L 03/11/17 13:30 Potassium Chloride 100 ml @ 50 mls/hr Q2H PRN IV For Potassium 2.8 - 3.2 mEq/L 03/11/17 13:30 Potassium Bicarb/ Potassium Chloride (K-Lyte Cl Eff) 50 meq UNSCH PRN PO For Potassium 3.3 - 3.5 mEq/L 03/11/17 13:30 Potassium Chloride 100 ml @ 25 mls/hr UNSCH PRN IV For Potassium 3.3 - 3.5 mEq/L 03/11/17 13:30 Potassium Chloride 100 ml @ 50 mls/hr Q2H PRN IV For Potassium 3.3 - 3.5 mEq/L 03/11/17 13:30 Magnesium Oxide (Mag-Ox) 800 mg UNSCH PRN PO For Magnesium 1.2 - 1.6 mg/dL 03/11/17 13:30 Potassium Phosphate (K-Phos) 2,000 mg Q4H PRN PO For Phosphorus < 2.5 mg/dL 03/11/17 13:30 Sodium Phosphate 30 mmol/Sodium Chloride 250 ml @ 42 mls/hr UNSCH PRN IV For Phosphorus < 2.5 mg/dL 03/11/17 13:30 Potassium Phosphate (K-Phos) 2,000 mg UNSCH PRN PO/TUBE SEE LABEL COMMENTS 03/11/17 13:30 Potassium Phosphate 30 mmol/ Sodium Chloride 260 ml @ 42 mls/hr UNSCH PRN IV SEE LABEL COMMENTS 03/11/17 13:30 03/12/17 01:47 Metronidazole 100 ml @ 100 mls/hr Q8H IV 03/11/17 18:00 03/13/17 11:49 Albuterol/ Ipratropium (Duoneb Neb) 1 ampule Q6HR NEB NEB 03/13/17 16:00 Furosemide (Lasix Inj) 40 mg Q12HR IV PUSH 03/13/17 21:00 OBJECTIVE: Vital Signs Date Time Temp Pulse Resp B/P (MAP) Pulse Ox O2 Delivery O2 Flow Rate FiO2 03/13/17 13:43 23 03/13/17 12:00 Nasal Cannula 30.00 100 03/13/17 12:00 98.9 84 20 110/67 (81) 100 03/13/17 08:00 87 03/13/17 08:00 99 Nasal Cannula 30.00 100 03/13/17 08:00 98.9 87 32 119/68 (85) 98 03/13/17 07:44 99 High Flow Nasal Cannula 30.00 100 03/13/17 06:00 26 03/13/17 04:00 98.7 88 27 127/67 (87) 96 03/13/17 04:00 94 Nasal Cannula 30.00 100 03/13/17 00:00 93 Nasal Cannula 30.00 100 03/13/17 00:00 98.2 95 34 122/68 (86) 93 03/13/17 00:00 95 03/12/17 22:00 96 03/12/17 22:00 26 03/12/17 20:17 95 High Flow Nasal Cannula 30.00 100 03/12/17 20:00 98.7 101 35 127/67 (87) 95 03/12/17 20:00 95 Nasal Cannula 30.00 100 03/12/17 20:00 101 03/12/17 16:00 94 Nasal Cannula 30.00 100 Humidified 03/12/17 16:00 98.5 105 37 132/70 (90) 94 Laboratory Tests Test 03/12/17 03:26 03/13/17 13:58 White Blood Count 19.2 TH/MM3 13.8 TH/MM3 Red Blood Count 3.53 MIL/MM3 3.38 MIL/MM3 Hemoglobin 10.6 GM/DL 10.4 GM/DL Hematocrit 32.2 % 30.7 % Mean Corpuscular Volume 91.1 FL 90.9 FL Mean Corpuscular Hemoglobin 30.0 PG 30.8 PG Mean Corpuscular Hemoglobin Concent 33.0 % 33.9 % Red Cell Distribution Width 13.9 % 13.7 % Platelet Count 243 TH/MM3 290 TH/MM3 Mean Platelet Volume 8.1 FL 8.1 FL Neutrophils (%) (Auto) 86.9 % Lymphocytes (%) (Auto) 7.8 % Monocytes (%) (Auto) 5.0 % Eosinophils (%) (Auto) 0.2 % Basophils (%) (Auto) 0.1 % Neutrophils # (Auto) 16.7 TH/MM3 Lymphocytes # (Auto) 1.5 TH/MM3 Monocytes # (Auto) 1.0 TH/MM3 Eosinophils # (Auto) 0.0 TH/MM3 Basophils # (Auto) 0.0 TH/MM3 CBC Comment DIFF FINAL Differential Comment Laboratory Tests Test 03/11/17 16:27 03/11/17 22:52 03/12/17 03:26 03/13/17 13:58 Lactic Acid Level 1.0 mmol/L Phosphorus Level 1.8 MG/DL 2.2 MG/DL Potassium Level 3.4 MEQ/L 3.5 MEQ/L 3.3 MEQ/L Blood Urea Nitrogen 11 MG/DL 15 MG/DL Creatinine 0.64 MG/DL 0.70 MG/DL Random Glucose 140 MG/DL 157 MG/DL Calcium Level 9.8 MG/DL 9.8 MG/DL Sodium Level 141 MEQ/L 140 MEQ/L Chloride Level 106 MEQ/L 106 MEQ/L Carbon Dioxide Level 25.2 MEQ/L 29.5 MEQ/L Anion Gap 10 MEQ/L 5 MEQ/L Estimat Glomerular Filtration Rate 92 ML/MIN 83 ML/MIN Microbiology Date/Time Source Procedure Growth Status 03/11/17 11:59 Blood Peripheral Aerobic Blood Culture - Preliminary NO GROWTH IN 2 DAYS Resulted 03/11/17 11:59 Blood Peripheral Anaerobic Blood Culture - Preliminary NO GROWTH IN 2 DAYS Resulted 03/11/17 11:45 Blood Peripheral Aerobic Blood Culture - Preliminary NO GROWTH IN 2 DAYS Resulted 03/11/17 11:45 Blood Peripheral Anaerobic Blood Culture - Preliminary NO GROWTH IN 2 DAYS Resulted IMAGING: Chest X-Ray 03/12/17 0600 Signed Impressions: Service Date/Time: Sunday, March 12, 2017 03:03 - CONCLUSION: No significant interval change with persistent left greater than right pulmonary opacity. Delfin Blount MD PHYSICAL EXAMINATION GENERAL: No acute distress. She is awake, alert and oriented. HEENT: Head is atraumatic. Extraocular movements grossly intact, pupils reactive to light without icterus. No conjunctival erythema. Oropharynx moist mucosa. No lesions. NECK: Supple without adenopathy. LUNGS: Coarse bilateral rhonchi. HEART: Regular S1, S2 without murmurs. ABDOMEN: Bowel sounds present, soft, nontender. EXTREMITIES: No clubbing, cyanosis or edema. SKIN: No rash. NEUROLOGIC: Nonfocal. IMPRESSION 1. Leukocytosis. 2. Pneumonia (Abnormal chest x-ray, cough and low grade fever). 3. Status post ascending colectomy RECOMMENDATIONS 1. Continue Piperacillin tazobactam for pulmonary coverage. 2. Continue Metronidazole 3. Obtain sputum culture if she is able to produce a specimen. 4. Continue to monitor chest x-ray, white blood cell count and clinical status. Jl Sahu MD Mar 13, 2017 15:32
[2017-03-13] MEDS: POTASSIUM CHLORIDE 25 MEQ EFFERVESCENT TAB PO PRN (20:08)
[2017-03-13] MEDS: FUROSEMIDE 40 MG/4 ML VIAL IV PUSH SCH (21:20)
[2017-03-14] VITALS (11 sets, daily range): BP systolic 99–117; BP diastolic 59–71; PULSE 76–100; RESP 15–36; TEMP 97.2–99; O2SAT 89–97
[2017-03-14] MEDS: HEPARIN SODIUM - SQ 10,000 UNITS/ML VIAL SQ SCH ×2 (02:06→16:31)
[2017-03-14] MEDS: metroNIDAZOLE 500 MG INJ 100 ML IV SCH ×3 (02:06→18:00)
[2017-03-14] MEDS: PIPERACIL-TAZO 4.5 GM PREMIX 100 ML IV SCH ×4 (02:32→19:48)
[2017-03-14 03:11] LABS: HEMATOCRIT 28.7 % (35.0-46.0); MEAN CELL VOLUME 88.5 FL (80.0-100.0); MEAN CORPUSCULAR HEMOGLOBIN 30.7 PG (27.0-34.0); MEAN CORPUSCULAR HGB CONC 34.7 % (32.0-36.0); PLATELET COUNT 310 TH/MM3 (150-450); RED BLOOD COUNT 3.24 MIL/MM3 (4.00-5.30); RED CELL DISTRIBUTION WIDTH 13.5 % (11.6-17.2); REVIEW FLAG FINAL; WHITE BLOOD COUNT 11.2 TH/MM3 (4.0-11.0)
[2017-03-14 03:25] LABS: BICARBONATE 27.8 MEQ/L (21.0-32.0); POTASSIUM 3.3 MEQ/L (3.5-5.1)
[2017-03-14] MEDS: RESP: ALBUTEROL 2.5 MG/IPRATROPIUM 0.5 MG NEB (SCH) NEB ×4 (03:54→19:51)
[2017-03-14] MEDS: CHLORHEXIDINE GLUCONATE 2 % 1 PACK (2 CLOTHS)(taper/protocol) TOPICAL SCH (04:00)
[2017-03-14] MEDS: INSULIN NovoLIN REGULAR SUPPLEMENTAL SCALE SQ SCH ×5 (06:00→23:37)
[2017-03-14] MEDS: FUROSEMIDE 40 MG/4 ML VIAL IV PUSH SCH ×2 (08:11→19:48)
[2017-03-14] MEDS: PANTOPRAZOLE SODIUM 40 MG VIAL IVP SCH (08:12)
[2017-03-14] MEDS: METOCLOPRAMIDE HCL 10 MG/2 ML VIAL IVS SCH (08:12)
[2017-03-14] MEDS: ALVIMOPAN 12 MG CAPSULE - Post-op dosing PO SCH ×2 (08:13→19:48)
[2017-03-14] MEDS: PRAVASTATIN SOD 40 MG TAB PO SCH (08:13)
[2017-03-14] MEDS: POTASSIUM CHLORIDE 25 MEQ EFFERVESCENT TAB PO PRN (11:07)
--- NOTE | 2017-03-14 11:19 | HHI.CCPN ---
Subjective Remarks/Hospital Course Subjective: 03/12: still hypoxic despite 3L diuresis yesterday. still requires NRB and if weaned at all, spo2 drops to the 70s. no ROBF yet. patient states she thinks her abdominal pain is improved, but still complains of SOB. 03/13: hypoxemia persists, on high flow NC, 30LPM, 100% fio2. however, subjectively feels better. still no ROBF. 03/14: hypoxemia slightly improved. subjectively her shortness of breath is improved as well. abdominal pain continues to improve. ROS otherwise negative. Objective Vital Signs Date Time Temp Pulse Resp B/P (MAP) Pulse Ox O2 Delivery O2 Flow Rate FiO2 03/14/17 10:09 93 Nasal Cannula 5.00 03/14/17 08:00 70 03/14/17 08:00 98.7 78 25 102/59 (73) Intake and Output 03/14/17 03/14/17 03/15/17 08:00 16:00 00:00 Intake Total 480 ml Output Total 2450 ml Balance -1970 ml Result Diagram: 03/14/17 0305 03/14/17 0305 Other Results Microbiology Date/Time Source Procedure Growth Status 03/13/17 21:40 Nasal Aspirate Influenza Types A,B Antigen (URI) - Final NEGATIVE FOR FLU A AND B ANTIGEN.... Complete Objective Remarks gen: middle-aged female, lying in bed, on 6L NC this AM. heent: nc. at. perrl. mmm. neck: trachea midline. no jvd. chest: tachypneic. spo2 93% on 6L NC. not using accessory muscles. cv: normal rate, regular rhythm. sinus by tele. abd: soft, appropriately tender to palpation. nondistended. abdominal binder in place. no guarding. incisions are c/d/i. extr: trace peripheral edema. distal pulses 2+. neuro: RASS 0. CAM -. GCS 15. follows commands. A/P Assessment and Plan Assessment: 67yF POD 5 s/p laparotomy, right hemicolectomy, complicated by post- operative pulmonary insufficiency. pulmonary edema vs. pneumonia. continue supportive care. Post-operative pulmonary insufficiency Pulmonary edema Acute intravascular volume overload - continue lasix 40mg iv q12h - high flow NC o2. - aggressive pulmonary toilet. Hypomagnesemia Hypokalemia - aggressive electrolyte replacement with active diuresis Leukocytosis- resolving. - likely post-operative SIRS response - agree with continuing Flagyl and Zosyn ID involved. Sinus tachycardia - improving. - likely secondary to SIRS response post-op. continue to monitor. s/p laparotomy, colectomy 03/09 - await ROBF - diet advancement per surgeon - continue adequate pain control. Remain in ICU. Critical care will continue to follow along. if remains on NC o2, can transfer out of ICU. Cl Martinez MD Mar 14, 2017 11:19
--- NOTE | 2017-03-14 14:00 | HHI.IDPN ---
Note Infectious Disease Note Patient says she feels a little better. Still has SOB but thinks it is improved. Coughed up a plug of thick brown mucus. On nasal O2. Afebrile. WBC lower. Post ascending colectomy for cecal mass. Also had appendectomy PAST MEDICAL HISTORY 1. Cataract surgery. 2. Breast implants. ALLERGIES BUPROPION MEDICATIONS 1. Piperacillin/tazobactam 2. Metronidazole OBJECTIVE: Vital Signs Date Time Temp Pulse Resp B/P (MAP) Pulse Ox O2 Delivery O2 Flow Rate FiO2 03/14/17 12:00 91 Nasal Cannula 30.00 70 03/14/17 12:00 98.9 76 15 99/60 (73) 89 03/14/17 10:09 93 Nasal Cannula 5.00 03/14/17 08:00 94 Nasal Cannula 30.00 70 03/14/17 08:00 98.7 78 25 102/59 (73) 92 03/14/17 08:00 78 03/14/17 04:00 98.9 81 29 111/65 (80) 96 03/14/17 04:00 84 Nasal Cannula 30.00 60 03/14/17 03:56 96 High Flow Nasal Cannula 25.00 60 03/14/17 00:19 97 High Flow Nasal Cannula 30.00 70 03/14/17 00:02 99.0 100 36 117/71 (86) 92 03/14/17 00:00 84 Nasal Cannula 30.00 70 03/13/17 20:00 86 03/13/17 20:00 99.2 86 21 134/72 (92) 95 03/13/17 20:00 95 Nasal Cannula 30.00 60 03/13/17 19:58 95 High Flow Nasal Cannula 30.00 90 03/13/17 16:00 99 Nasal Cannula 30.00 100 03/13/17 16:00 98.6 97 27 109/57 (74) 96 Laboratory Tests Test 03/13/17 13:58 03/14/17 03:05 White Blood Count 13.8 TH/MM3 11.2 TH/MM3 Red Blood Count 3.38 MIL/MM3 3.24 MIL/MM3 Hemoglobin 10.4 GM/DL 9.9 GM/DL Hematocrit 30.7 % 28.7 % Mean Corpuscular Volume 90.9 FL 88.5 FL Mean Corpuscular Hemoglobin 30.8 PG 30.7 PG Mean Corpuscular Hemoglobin Concent 33.9 % 34.7 % Red Cell Distribution Width 13.7 % 13.5 % Platelet Count 290 TH/MM3 310 TH/MM3 Mean Platelet Volume 8.1 FL 7.6 FL Laboratory Tests Test 03/13/17 13:58 03/14/17 03:05 Blood Urea Nitrogen 15 MG/DL 11 MG/DL Creatinine 0.70 MG/DL 0.55 MG/DL Random Glucose 157 MG/DL 122 MG/DL Calcium Level 9.8 MG/DL 9.5 MG/DL Sodium Level 140 MEQ/L 140 MEQ/L Potassium Level 3.3 MEQ/L 3.3 MEQ/L Chloride Level 106 MEQ/L 105 MEQ/L Carbon Dioxide Level 29.5 MEQ/L 27.8 MEQ/L Anion Gap 5 MEQ/L 7 MEQ/L Estimat Glomerular Filtration Rate 83 ML/MIN 110 ML/MIN Microbiology Date/Time Source Procedure Growth Status 03/13/17 21:40 Nasal Aspirate Influenza Types A,B Antigen (URI) - Final NEGATIVE FOR FLU A AND B ANTIGEN.... Complete IMAGING: Chest X-Ray 03/12/17 0600 Signed Impressions: Service Date/Time: Sunday, March 12, 2017 03:03 - CONCLUSION: No significant interval change with persistent left greater than right pulmonary opacity. Delfin Blount MD PHYSICAL EXAMINATION GENERAL: No acute distress. She is awake, alert and oriented. HEENT: Head is atraumatic. Extraocular movements grossly intact, pupils reactive to light without icterus. No conjunctival erythema. Oropharynx moist mucosa. No lesions. NECK: Supple without adenopathy. LUNGS: Bilateral rhonchi. HEART: Regular S1, S2 without murmurs. ABDOMEN: Bowel sounds present, soft, nontender. EXTREMITIES: No clubbing, cyanosis or edema. SKIN: No rash. NEUROLOGIC: Nonfocal. IMPRESSION 1. Leukocytosis. 2. Pneumonia (Abnormal chest x-ray, cough and low grade fever). 3. Status post ascending colectomy RECOMMENDATIONS 1. Continue Piperacillin tazobactam for pulmonary coverage. 2. Continue Metronidazole 3. Obtain sputum culture if she is able to produce a specimen. 4. Continue to monitor chest x-ray - ordered for am. 5. Monitor white blood cell count and clinical status. Jl Sahu MD Mar 14, 2017 14:00
[2017-03-14] MEDS ORDERED: METOCLOPRAMIDE HCL 10 MG/2 ML VIAL IVS PRN (18:00)
--- NOTE | 2017-03-14 20:10 | HHI.PR ---
Subjective Remarks C/R surg POD#5 afebrile, VSS - tachy, O2 sat better UO good c/o SOB - better OOB reynaldo PO Objective - Vital Signs Date Time Temp Pulse Resp B/P (MAP) Pulse Ox O2 Delivery O2 Flow Rate FiO2 03/14/17 19:53 92 Nasal Cannula 7.00 03/14/17 16:00 98.5 86 32 115/60 (78) 03/14/17 12:00 70 Result Diagram: 03/14/1730403/14/17 030 Objective Remarks PE alert Chest - on Rebreather Abd - soft, wound dry, min tympany, wound clean, +BM A/P Assessment and Plan Imp: CXR - in AM OOB decr IVF resp Rx, IV ab's PT adv diet Satya Lopez MD Mar 14, 2017 20:10
[2017-03-15] VITALS (16 sets, daily range): BP systolic 99–123; BP diastolic 57–71; PULSE 74–104; RESP 18–38; TEMP 98.3–99.4; O2SAT 88–97
[2017-03-15] MEDS: HEPARIN SODIUM - SQ 10,000 UNITS/ML VIAL SQ SCH ×2 (01:16→14:11)
[2017-03-15] MEDS: PIPERACIL-TAZO 4.5 GM PREMIX 100 ML IV SCH ×4 (01:16→19:51)
[2017-03-15] MEDS: CHLORHEXIDINE GLUCONATE 2 % 1 PACK (2 CLOTHS)(taper/protocol) TOPICAL SCH (01:16)
[2017-03-15] MEDS: metroNIDAZOLE 500 MG INJ 100 ML IV SCH ×3 (01:17→17:56)
[2017-03-15] MEDS: RESP: ALBUTEROL 2.5 MG/IPRATROPIUM 0.5 MG NEB (SCH) NEB ×4 (03:43→21:01)
--- NOTE | 2017-03-15 05:11 | RADRPT ---
EXAM DATE/TIME: 03/15/2017 03:33 [facility] COMPARISON: CHEST SINGLE AP, March 12, 2017, 3:03. INDICATIONS : Short of breath. MEDICAL HISTORY : None. SURGICAL HISTORY : None. ENCOUNTER: Subsequent ACUITY: 1 week PAIN SCORE: 0/10 LOCATION: Bilateral chest FINDINGS: The heart size is within normal limits. There is increased density at the left base. The right lung i s clear. CONCLUSION: Left lower lobe atelectasis or consolidation. Jovani Bolton MD on March 15, 2017 at 5:09 Board Certified Radiologist. This report was verified electronically.
[2017-03-15] MEDS: INSULIN NovoLIN REGULAR SUPPLEMENTAL SCALE SQ SCH ×3 (05:24→17:56)
[2017-03-15 07:03] LABS: HEMATOCRIT 30.6 % (35.0-46.0); MEAN CORPUSCULAR HEMOGLOBIN 30.4 PG (27.0-34.0); MEAN CORPUSCULAR HGB CONC 34.2 % (32.0-36.0); PLATELET COUNT 420 TH/MM3 (150-450); RED BLOOD COUNT 3.43 MIL/MM3 (4.00-5.30); RED CELL DISTRIBUTION WIDTH 14.1 % (11.6-17.2); REVIEW FLAG FINAL; WHITE BLOOD COUNT 11.5 TH/MM3 (4.0-11.0)
[2017-03-15 07:16] LABS: BICARBONATE 27.4 MEQ/L (21.0-32.0)
[2017-03-15] MEDS: PRAVASTATIN SOD 40 MG TAB PO SCH (08:21)
[2017-03-15] MEDS: ALVIMOPAN 12 MG CAPSULE - Post-op dosing PO SCH ×2 (08:21→20:01)
[2017-03-15] MEDS: PANTOPRAZOLE SODIUM 40 MG VIAL IVP SCH (08:22)
[2017-03-15] MEDS: FUROSEMIDE 40 MG/4 ML VIAL IV PUSH SCH ×2 (08:22→20:01)
[2017-03-15] MEDS ORDERED: POTASSIUM CHLORIDE 25 MEQ EFFERVESCENT TAB PO ONE (12:15)
--- NOTE | 2017-03-15 15:06 | HHI.CCPN ---
Subjective Remarks/Hospital Course Subjective: 03/12: still hypoxic despite 3L diuresis yesterday. still requires NRB and if weaned at all, spo2 drops to the 70s. no ROBF yet. patient states she thinks her abdominal pain is improved, but still complains of SOB. 03/13: hypoxemia persists, on high flow NC, 30LPM, 100% fio2. however, subjectively feels better. still no ROBF. 03/14: hypoxemia slightly improved. subjectively her shortness of breath is improved as well. abdominal pain continues to improve. ROS otherwise negative. 03/15: subjectively feels better. o2 requirement improving. still on high flow nc. has had return of bowel function. tolerating diet. wbc downtrending. afebrile. Objective Vital Signs Date Time Temp Pulse Resp B/P (MAP) Pulse Ox O2 Delivery O2 Flow Rate FiO2 03/15/17 14:00 79 26 120/71 (87) 95 03/15/17 12:00 98.6 03/15/17 12:00 Nasal Cannula 10.00 60 Intake and Output 03/15/17 03/15/17 03/16/17 08:00 16:00 00:00 Intake Total 680 ml Output Total 1675 ml Balance -995 ml Result Diagram: 03/15/1719 03/15/17518 Other Results Microbiology Date/Time Source Procedure Growth Status 03/13/17 21:40 Nasal Aspirate Influenza Types A,B Antigen (URI) - Final NEGATIVE FOR FLU A AND B ANTIGEN.... Complete Objective Remarks gen: middle-aged female, lying in bed, high flow nc. heent: nc. at. perrl. mmm. neck: trachea midline. no jvd. chest: tachypneic. spo2 98% on 30LPM, fio2 40%. not using accessory muscles. cv: normal rate, regular rhythm. sinus by tele. abd: soft, appropriately tender to palpation. nondistended. abdominal binder in place. no guarding. incisions are c/d/i. extr: trace peripheral edema. distal pulses 2+. neuro: RASS 0. CAM -. GCS 15. follows commands. A/P Assessment and Plan Assessment: 67yF POD 6 s/p laparotomy, right hemicolectomy, complicated by post- operative pulmonary insufficiency. pulmonary edema vs. pneumonia. continue supportive care. Post-operative pulmonary insufficiency Pulmonary edema Acute intravascular volume overload - continue lasix 40mg iv q12h - high flow NC o2. - aggressive pulmonary toilet. Hypomagnesemia Hypokalemia - aggressive electrolyte replacement with active diuresis Leukocytosis- resolving. - likely post-operative SIRS response - agree with continuing Flagyl and Zosyn ID involved. Sinus tachycardia - improving. - likely secondary to SIRS response post-op. continue to monitor. s/p laparotomy, colectomy 03/09 - reg diet per surgeon. - continue adequate pain control. Remain in ICU. Critical care will continue to follow along. if improving o2 requirements, can transfer out of ICU. Cl Martinez MD Mar 15, 2017 15:06
--- NOTE | 2017-03-15 16:55 | HHI.IDPN ---
Note Infectious Disease Note Patient still has SOB but thinks it is improving. On nasal O2. Afebrile. Post ascending colectomy for cecal mass. Also had appendectomy PAST MEDICAL HISTORY 1. Cataract surgery. 2. Breast implants. ALLERGIES BUPROPION MEDICATIONS 1. Piperacillin/tazobactam 2. Metronidazole OBJECTIVE: Vital Signs Date Time Temp Pulse Resp B/P (MAP) Pulse Ox O2 Delivery O2 Flow Rate FiO2 03/15/17 16:00 83 03/15/17 16:00 93 Nasal Cannula 10.00 60 03/15/17 16:00 98.9 83 30 95 03/15/17 14:00 79 26 120/71 (87) 95 03/15/17 14:00 79 03/15/17 13:00 84 03/15/17 13:00 84 38 118/66 (83) 88 03/15/17 12:00 74 03/15/17 12:00 98.6 74 27 110/66 (81) 96 03/15/17 12:00 94 Nasal Cannula 10.00 60 03/15/17 10:00 104 03/15/17 08:00 92 Nasal Cannula 10.00 60 03/15/17 08:00 85 03/15/17 08:00 98.4 85 29 123/65 (84) 92 03/15/17 06:00 77 03/15/17 04:00 98.7 79 28 118/60 (79) 97 03/15/17 04:00 97 Nasal Cannula 10.00 60 03/15/17 04:00 79 03/15/17 03:43 94 High Flow Nasal Cannula 10.00 70 03/15/17 03:30 96 Nasal Cannula 10.00 70 03/15/17 02:00 75 03/15/17 01:45 97 Nasal Cannula 15.00 70 03/15/17 00:00 99.4 79 28 115/66 (82) 92 03/15/17 00:00 92 Nasal Cannula 18.00 70 03/15/17 00:00 79 03/14/17 23:56 90 Nasal Cannula 18.00 70 03/14/17 22:00 81 03/14/17 21:45 88 Nasal Cannula 18.00 60 03/14/17 20:00 97.2 79 29 105/59 (74) 97 03/14/17 20:00 97 Nasal Cannula 6.00 03/14/17 20:00 79 03/14/17 19:53 92 Nasal Cannula 7.00 Laboratory Tests Test 03/14/17 03:05 03/15/17 05:19 White Blood Count 11.2 TH/MM3 11.5 TH/MM3 Red Blood Count 3.24 MIL/MM3 3.43 MIL/MM3 Hemoglobin 9.9 GM/DL 10.4 GM/DL Hematocrit 28.7 % 30.6 % Mean Corpuscular Volume 88.5 FL 89.0 FL Mean Corpuscular Hemoglobin 30.7 PG 30.4 PG Mean Corpuscular Hemoglobin Concent 34.7 % 34.2 % Red Cell Distribution Width 13.5 % 14.1 % Platelet Count 310 TH/MM3 420 TH/MM3 Mean Platelet Volume 7.6 FL 8.4 FL Laboratory Tests Test 03/14/17 03:05 03/15/17 05:19 Blood Urea Nitrogen 11 MG/DL 14 MG/DL Creatinine 0.55 MG/DL 0.67 MG/DL Random Glucose 122 MG/DL 115 MG/DL Calcium Level 9.5 MG/DL 9.9 MG/DL Sodium Level 140 MEQ/L 139 MEQ/L Potassium Level 3.3 MEQ/L 3.0 MEQ/L Chloride Level 105 MEQ/L 103 MEQ/L Carbon Dioxide Level 27.8 MEQ/L 27.4 MEQ/L Anion Gap 7 MEQ/L 9 MEQ/L Estimat Glomerular Filtration Rate 110 ML/MIN 88 ML/MIN Microbiology Date/Time Source Procedure Growth Status 03/14/17 15:00 Sputum Expectorated Sputum Gram Stain - Final Resulted 03/14/17 15:00 Sputum Expectorated Sputum Sputum Culture - Preliminary NO GROWTH IN 24 HOURS. Resulted 03/13/17 21:40 Nasal Aspirate Influenza Types A,B Antigen (URI) - Final NEGATIVE FOR FLU A AND B ANTIGEN.... Complete IMAGING: Chest X-Ray 03/15/17 06 Signed Impressions: Service Date/Time: Wednesday, March 15, 2017 03:33 - CONCLUSION: Left lower lobe atelectasis or consolidation. Jovani Bolton MD Chest X-Ray 03/12/17 0600 Signed Impressions: Service Date/Time: Sunday, March 12, 2017 03:03 - CONCLUSION: No significant interval change with persistent left greater than right pulmonary opacity. Delfin Blount MD PHYSICAL EXAMINATION GENERAL: No acute distress. She is awake, alert and oriented. HEENT: Head is atraumatic. Extraocular movements grossly intact, pupils reactive to light without icterus. No conjunctival erythema. Oropharynx moist mucosa. No lesions. NECK: Supple without adenopathy. LUNGS: Bilateral rhonchi. HEART: Regular S1, S2 without murmurs. ABDOMEN: Bowel sounds present, soft, nontender. EXTREMITIES: No clubbing, cyanosis or edema. SKIN: No rash. NEUROLOGIC: Nonfocal. IMPRESSION 1. Leukocytosis. 2. Pneumonia (Abnormal chest x-ray, cough and low grade fever). Sputum culture has normal aneudy. improving. 3. Status post ascending colectomy RECOMMENDATIONS 1. Continue Piperacillin tazobactam another couple of days. 2. Continue Metronidazole 3. Monitor white blood cell count and clinical status. Jl Sahu MD Mar 15, 2017 16:55
--- NOTE | 2017-03-15 17:07 | HHI.PR ---
Subjective Remarks C/R surg POD afebrile, VSS - O2 sat better UO good c/o SOB - better OOB reynaldo PO, tx to floor Objective - Vital Signs Date Time Temp Pulse Resp B/P (MAP) Pulse Ox O2 Delivery O2 Flow Rate FiO2 03/15/17 16:00 83 03/15/17 16:00 93 Nasal Cannula 10.00 60 03/15/17 16:00 98.9 30 03/15/17 14:00 120/71 (87) Result Diagram: 03/15/1751803/15/17518 Objective Remarks PE alert Chest - on nasal O2 Abd - soft, wound dry, min tympany, wound clean, +BM A/P Assessment and Plan Imp: CXR - improved OOB decr IVF resp Rx, IV ab's PT adv diet Satya Lopez MD Mar 15, 2017 17:07
[2017-03-16] VITALS (10 sets, daily range): BP systolic 98–130; BP diastolic 55–61; PULSE 73–81; RESP 18–22; TEMP 97.8–98.7; O2SAT 88–95
[2017-03-16] MEDS: PIPERACIL-TAZO 4.5 GM PREMIX 100 ML IV SCH ×4 (02:14→20:46)
[2017-03-16] MEDS: HEPARIN SODIUM - SQ 10,000 UNITS/ML VIAL SQ SCH ×2 (02:14→14:09)
[2017-03-16] MEDS: metroNIDAZOLE 500 MG INJ 100 ML IV SCH ×2 (02:15→09:52)
[2017-03-16] MEDS: CHLORHEXIDINE GLUCONATE 2 % 1 PACK (2 CLOTHS)(taper/protocol) TOPICAL SCH (04:00)
[2017-03-16] MEDS: RESP: ALBUTEROL 2.5 MG/IPRATROPIUM 0.5 MG NEB (SCH) NEB ×4 (04:09→21:14)
[2017-03-16] MEDS: INSULIN NovoLIN REGULAR SUPPLEMENTAL SCALE SQ SCH ×5 (05:07→23:01)
[2017-03-16 06:39] LABS: HEMATOCRIT 33.1 % (35.0-46.0); MEAN CELL VOLUME 89.7 FL (80.0-100.0); MEAN CORPUSCULAR HEMOGLOBIN 30.7 PG (27.0-34.0); MEAN CORPUSCULAR HGB CONC 34.2 % (32.0-36.0); PLATELET COUNT 508 TH/MM3 (150-450); RED BLOOD COUNT 3.69 MIL/MM3 (4.00-5.30); RED CELL DISTRIBUTION WIDTH 14.2 % (11.6-17.2); REVIEW FLAG FINAL; WHITE BLOOD COUNT 11.4 TH/MM3 (4.0-11.0)
[2017-03-16 06:48] LABS: BICARBONATE 25.8 MEQ/L (21.0-32.0); POTASSIUM 3.4 MEQ/L (3.5-5.1)
[2017-03-16] MEDS: FUROSEMIDE 40 MG/4 ML VIAL IV PUSH SCH (08:24)
[2017-03-16] MEDS: ALVIMOPAN 12 MG CAPSULE - Post-op dosing PO SCH ×2 (08:24→20:46)
[2017-03-16] MEDS: PANTOPRAZOLE SODIUM 40 MG VIAL IVP SCH (08:24)
[2017-03-16] MEDS: PRAVASTATIN SOD 40 MG TAB PO SCH (08:25)
[2017-03-16] MEDS ORDERED: methylPREDNISolone SOD SUCC 40 MG/1 ML VIAL IV PUSH ONE (10:00)
[2017-03-16] MEDS: ACETAMINOPHEN/HYDROcodone 325 MG/5 MG TAB PO PRN ×2 (10:08→20:46)
--- NOTE | 2017-03-16 15:10 | HHI.IDPN ---
Note Infectious Disease Note Patient still has SOB. On nasal O2. Afebrile. No chest pain. Post ascending colectomy for cecal mass. Also had appendectomy PAST MEDICAL HISTORY 1. Cataract surgery. 2. Breast implants. ALLERGIES BUPROPION MEDICATIONS 1. Piperacillin/tazobactam 2. Metronidazole OBJECTIVE: Vital Signs Date Time Temp Pulse Resp B/P (MAP) Pulse Ox O2 Delivery O2 Flow Rate FiO2 03/16/17 11:50 98.5 77 22 98/57 (71) 92 03/16/17 09:50 20 91 03/16/17 09:49 20 88 03/16/17 08:00 Nasal Cannula 3.00 03/16/17 08:00 98.4 73 20 104/59 (74) 93 03/16/17 04:50 98.7 79 18 111/59 (76) 92 03/16/17 04:13 92 Nasal Cannula 3.00 03/15/17 23:08 99.1 79 18 103/57 (72) 93 03/15/17 21:01 95 Nasal Cannula 5.00 03/15/17 20:50 98.4 80 18 120/58 (78) 93 03/15/17 19:30 Nasal Cannula 5.00 Humidified 03/15/17 17:45 94 Nasal Cannula 5.00 03/15/17 17:40 98.3 80 20 99/60 (73) 93 03/15/17 16:00 83 03/15/17 16:00 93 Nasal Cannula 10.00 60 03/15/17 16:00 98.9 83 30 95 Laboratory Tests Test 03/15/17 05:19 03/16/17 06:17 White Blood Count 11.5 TH/MM3 11.4 TH/MM3 Red Blood Count 3.43 MIL/MM3 3.69 MIL/MM3 Hemoglobin 10.4 GM/DL 11.3 GM/DL Hematocrit 30.6 % 33.1 % Mean Corpuscular Volume 89.0 FL 89.7 FL Mean Corpuscular Hemoglobin 30.4 PG 30.7 PG Mean Corpuscular Hemoglobin Concent 34.2 % 34.2 % Red Cell Distribution Width 14.1 % 14.2 % Platelet Count 420 TH/MM3 508 TH/MM3 Mean Platelet Volume 8.4 FL 7.8 FL Laboratory Tests Test 03/15/17 05:19 12/20/17 06:17 Blood Urea Nitrogen 14 MG/DL 16 MG/DL Creatinine 0.67 MG/DL 0.80 MG/DL Random Glucose 115 MG/DL 123 MG/DL Calcium Level 9.9 MG/DL 10.1 MG/DL Sodium Level 139 MEQ/L 139 MEQ/L Potassium Level 3.0 MEQ/L 3.4 MEQ/L Chloride Level 103 MEQ/L 106 MEQ/L Carbon Dioxide Level 27.4 MEQ/L 25.8 MEQ/L Anion Gap 9 MEQ/L 7 MEQ/L Estimat Glomerular Filtration Rate 88 ML/MIN 71 ML/MIN Microbiology Date/Time Source Procedure Growth Status 03/14/17 15:00 Sputum Expectorated Sputum Gram Stain - Final Complete 03/14/17 15:00 Sputum Expectorated Sputum Sputum Culture - Final NO GROWTH IN 48 HOURS. Complete 03/13/17 21:40 Nasal Aspirate Influenza Types A,B Antigen (URI) - Final NEGATIVE FOR FLU A AND B ANTIGEN.... Complete IMAGING: Chest X-Ray 03/15/17 06 Signed Impressions: Service Date/Time: Wednesday, March 15, 2017 03:33 - CONCLUSION: Left lower lobe atelectasis or consolidation. Jovani Bolton MD Chest X-Ray 03/12/17 0600 Signed Impressions: Service Date/Time: Sunday, March 12, 2017 03:03 - CONCLUSION: No significant interval change with persistent left greater than right pulmonary opacity. Delfin Blount MD PHYSICAL EXAMINATION GENERAL: No acute distress. She is awake, alert and oriented. HEENT: Head is atraumatic. Extraocular movements grossly intact, pupils reactive to light without icterus. No conjunctival erythema. Oropharynx moist mucosa. No lesions. NECK: Supple without adenopathy. LUNGS: basilar rhonchi. decreased breath sounds. HEART: Regular S1, S2 without murmurs. ABDOMEN: Bowel sounds present, soft, nontender. EXTREMITIES: No clubbing, cyanosis or edema. SKIN: No rash. NEUROLOGIC: Nonfocal. IMPRESSION 1. Leukocytosis. improved. 2. Pneumonia (Abnormal chest x-ray, cough and low grade fever). Sputum culture has normal aneudy. improving. 3. Status post ascending colectomy RECOMMENDATIONS 1. Change Piperacillin/ tazobactam to Cefuroxime tomorrow. 2. Stop Metronidazole 3. Monitor white blood cell count and clinical status. If stable for discharge would give 7 days of Cefuroxime 500mg PO bid. Jl Sahu MD Mar 16, 2017 15:10
[2017-03-17] MEDS: HEPARIN SODIUM - SQ 10,000 UNITS/ML VIAL SQ SCH ×2 (01:52→12:16)
[2017-03-17] MEDS: PIPERACIL-TAZO 4.5 GM PREMIX 100 ML IV SCH (01:52)
[2017-03-17] MEDS: RESP: ALBUTEROL 2.5 MG/IPRATROPIUM 0.5 MG NEB (SCH) NEB ×3 (03:55→15:55)
[2017-03-17 05:17] VITALS: BP 126/66; PULSE 80; RESP 18; TEMP 98.2; O2SAT 93
[2017-03-17] MEDS: INSULIN NovoLIN REGULAR SUPPLEMENTAL SCALE SQ SCH ×2 (05:37→12:15)
[2017-03-17 05:43] LABS: HEMATOCRIT 32.2 % (35.0-46.0); MEAN CELL VOLUME 90.5 FL (80.0-100.0); MEAN CORPUSCULAR HEMOGLOBIN 30.5 PG (27.0-34.0); MEAN CORPUSCULAR HGB CONC 33.7 % (32.0-36.0); PLATELET COUNT 551 TH/MM3 (150-450); RED BLOOD COUNT 3.56 MIL/MM3 (4.00-5.30); RED CELL DISTRIBUTION WIDTH 14.1 % (11.6-17.2); REVIEW FLAG FINAL; WHITE BLOOD COUNT 14.9 TH/MM3 (4.0-11.0)
[2017-03-17 05:57] LABS: BICARBONATE 24.9 MEQ/L (21.0-32.0); POTASSIUM 3.6 MEQ/L (3.5-5.1)
[2017-03-17 07:43] VITALS: O2SAT 93
[2017-03-17] MEDS ORDERED: CEFU1TAB20 PO (07:55)
[2017-03-17 08:00] VITALS: BP_SYST 129; BP_SYST 154; BP_DIAS 65; BP_DIAS 68; PULSE 72; RESP 20; TEMP 98.6; O2SAT 98
--- NOTE | 2017-03-17 08:06 | HHI.PR ---
Subjective Remarks C/R surg POD afebrile, VSS - O2 sat better UO good c/o SOB - better OOB dc plans Objective - Vital Signs Date Time Temp Pulse Resp B/P (MAP) Pulse Ox O2 Delivery O2 Flow Rate FiO2 03/17/17 07:43 93 Nasal Cannula 2.00 03/17/17 05:17 98.2 80 18 126/66 (86) 03/15/17 16:00 60 Result Diagram: 03/17/1751403/17/17514 Objective Remarks PE alert Chest - on nasal O2 Abd - soft, wound dry, min tympany, wound clean, +BM A/P Assessment and Plan Imp: CXR - improved OOB decr IVF resp Rx, PO ab's PT dc plans Satya Lopez MD Mar 17, 2017 08:06
[2017-03-17] MEDS: PRAVASTATIN SOD 40 MG TAB PO SCH (08:43)
[2017-03-17] MEDS: PANTOPRAZOLE SODIUM 40 MG VIAL IVP SCH (08:43)
[2017-03-17] MEDS ORDERED: predniSONE 20 MG TAB PO SCH (09:00)
[2017-03-17] MEDS ORDERED: FUROSEMIDE 40 MG/4 ML VIAL IV PUSH SCH (09:00)
[2017-03-17] MEDS ORDERED: CEFUROXIME AXETIL 500 MG TAB PO SCH (11:00)
[2017-03-17 12:00] VITALS: BP 137/64; PULSE 81; RESP 20; TEMP 98.4; O2SAT 93
--- NOTE | 2017-03-17 15:06 | HHI.FF ---
Face to Face Verification Diagnosis: (1) Hypoxemia (2) Polyp of ascending colon Physical Therapy Order: Evaluate and Treat, Improve ambulation, Strength and gait training Home Health Nursing Order: Signs/symptoms of disease process Oxygen administration education Medication education-adverse effect Nursing assessment with vital signs I have seen patient Yumiko Durham on 03/17/17. My clinical findings support the need for the requested home health care services because: Ltd mobility - disease progression Patient has SOB Deconditioned w/ increased weakness High risk of falls Infection w/ risk of complications I certify that my clinical findings support that this patient is homebound because: Post-op weakness Unsteady gait/balance Poor cardiac reserve Satya Lopez MD Mar 17, 2017 15:06
== END 2017-03-17 15:57 | disposition home health service (06) | DRG 329 ==
LOC: HSDI 10:41 → HCPC 19:30 → N07B 03-10 21:31 → HIMW 03-11 09:22 → N04B 03-15 17:15
PROVIDERS: ADMIT Colon & Rectal Surgery; ATTEND Colon & Rectal Surgery
PROC: 0WJP0ZZ Inspection of Gastrointestinal Tract, Open Approach (ICD-10-PCS; 2017-03-09)
PROC: 07BC0ZX Excision of Pelvis Lymphatic, Open Approach, Diagnostic (ICD-10-PCS; 2017-03-09)
PROC: 0DTF0ZZ Resection of Right Large Intestine, Open Approach (ICD-10-PCS; principal; 2017-03-09 13:26)
DX: D49.0 Neoplasm of unspecified behavior of digestive system (principal); J96.01 Acute respiratory failure with hypoxia; J95.821 Acute postprocedural respiratory failure; J18.9 Pneumonia, unspecified organism; E78.5 Hyperlipidemia, unspecified; D64.9 Anemia, unspecified; F17.210 Nicotine dependence, cigarettes, uncomplicated; I10 Essential (primary) hypertension; E87.6 Hypokalemia; R00.0 Tachycardia, unspecified; Z98.82 Breast implant status
CPT/HCPCS: 36600; 71010; 80048; 80053; 81001; 82805; 82948; 83605; 83735; 84100; 84132; 85025; 85027; 85610; 86850; 86900; 86901; 87040; 87070; 87205; 87641; 87804; 88304; 88307; 88309; 93005; 94150; 94640; 94664; 94667; 94668; C9113; J0131; J0690; J1644; J1940; J2270; J2543; J2765; J2920; J3475; J3480; J7050; J7120; J7512; J7613